=== PATIENT | male | born 1950 | race Hispanic/Latino ===

== ENCOUNTER → 2018-02-23 | Outpatient (CLI) | payer OTHER ==
[~2018-02-23] MED LIST: CALC1TAB3 PO; CARV25TA PO; CYAN25002 SL; DIGO0.25 PO; FENT25PAT TD; FOLI1TAB15 PO; FURO40TA5 PO; GABA300S PO; HYDR-4068 PO; INSLAN SQ; INSREG SQ; MELO7.5O PO; METO2.5T2 PO; POTA-79 PO; PRAV80TA21 PO; RIVA20TA PO; ZINC50TA64 PO
== END | disposition home or self-care (01) ==
LOC: OIH 14:18
PROVIDERS: ATTEND Internal Medicine
DX: J20.8 Acute bronchitis due to other specified organisms (principal)
CPT/HCPCS: 71046

== ENCOUNTER → 2018-08-15 | Outpatient (CLI) | payer OTHER | END | disposition home or self-care (01) | LOC: OIH 15:58 | PROVIDERS: ATTEND Internal Medicine | DX: M47.816 Spondylosis without myelopathy or radiculopathy, lumbar region (principal); M48.061 Spinal stenosis, lumbar region without neurogenic claudication; M85.88 Other specified disorders of bone density and structure, other site; M25.78 Osteophyte, vertebrae | CPT/HCPCS: 72100 ==

== ENCOUNTER → 2019-03-20 | Outpatient (CLI) | payer OTHER | END | disposition home or self-care (01) | LOC: OIH 12:20 | PROVIDERS: ATTEND Internal Medicine | DX: M51.34 Other intervertebral disc degeneration, thoracic region (principal) | CPT/HCPCS: 71046 ==

== ENCOUNTER → 2019-10-11 | Outpatient (CLI) | payer OTHER | END | disposition home or self-care (01) | LOC: OIH 10:37 | PROVIDERS: ATTEND Internal Medicine | DX: M25.511 Pain in right shoulder (principal) | CPT/HCPCS: 73030 ==

== ENCOUNTER → 2020-06-19 | Outpatient (CLI) | payer MEDICARE | END | disposition home or self-care (01) | LOC: RAH 11:53 | PROVIDERS: ATTEND Internal Medicine | DX: S09.90XA Unspecified injury of head, initial encounter (principal); X58.XXXA Exposure to other specified factors, initial encounter; Y93.89 Activity, other specified; Y92.89 Other specified places as the place of occurrence of the external cause; Y99.8 Other external cause status | CPT/HCPCS: 70450; 72125 ==

== ENCOUNTER 2021-03-24 07:09 | Day surgery (SDC) | payer MEDICARE ==
[~2021-03-24] VITALS: Ht 185.4 cm; Wt 113.4 kg
[~2021-03-24 07:09] MED LIST changes: +0.9%NACL 1000ML 1,000 ML IV ONE
[2021-03-24 07:48] VITALS: BP 108/61
[2021-03-24] MEDS ORDERED: PRAV80TA21 PO (08:55)
[2021-03-24] MEDS ORDERED: INSU100C6 SQ (08:55)
[2021-03-24] MEDS ORDERED: NITR0.4T SL (08:55)
[2021-03-24] MEDS ORDERED: GABA300C PO (08:55)
[2021-03-24] MEDS ORDERED: PROPOFOL 10 MG/ML 20ML VIAL IV ONE (09:01)
[2021-03-24] MEDS ORDERED: SACU1TAB7 PO (09:06)
[2021-03-24] MEDS ORDERED: AMIO200T6 PO (09:06)
[2021-03-24] MEDS ORDERED: ALLO100T PO (09:06)
[2021-03-24] MEDS ORDERED: FURO40TA5 PO (09:06)
[2021-03-24] MEDS ORDERED: OMEG-148 PO (09:08)
[2021-03-24] MEDS ORDERED: LEVO25CA4 PO (09:09)
[2021-03-24 09:25] VITALS: BP 113/67
[2021-03-24 09:35] VITALS: BP 116/70
== END 2021-03-24 09:50 | disposition home or self-care (01) ==
LOC: ENDO 07:09 → DAH 07:09 → ENDO 09:50
PROVIDERS: ATTEND Internal Medicine Gastroenterology
DX: R19.5 Other fecal abnormalities (principal); D12.2 Benign neoplasm of ascending colon; D12.5 Benign neoplasm of sigmoid colon; I11.0 Hypertensive heart disease with heart failure; I50.20 Unspecified systolic (congestive) heart failure; I25.10 Atherosclerotic heart disease of native coronary artery without angina pectoris; E78.5 Hyperlipidemia, unspecified; I25.2 Old myocardial infarction; E11.9 Type 2 diabetes mellitus without complications; Z86.010 Personal history of colon polyps; Z86.718 Personal history of other venous thrombosis and embolism; Z79.899 Other long term (current) drug therapy; Z20.822 Contact with and (suspected) exposure to COVID-19
CPT/HCPCS: 45380; 45385; 82948; 87635; A4215 ×2; A4221; A4222; A4223; A4606; A4620; A4657; A4663; C9803; J2704; J7030